=== PATIENT | female | born 1955 | race Hispanic/Latino ===

== ENCOUNTER → 2018-04-02 | Outpatient (CLI) | payer OTHER | END | disposition home or self-care (01) | LOC: RAH 10:55 | PROVIDERS: ATTEND Family Medicine | DX: Z12.31 Encounter for screening mammogram for malignant neoplasm of breast (principal) | CPT/HCPCS: 77067 ==

== ENCOUNTER 2019-03-30 17:06 | Emergency (ER) | payer OTHER ==
[~2019-03-30 17:06] MED LIST: LEVO500T2 PO; METF-446 PO; METH4TAB3 PO
[2019-03-30 18:09] LABS: BASOPHILS % (AUTO) 0.6 % (0.0-5.0); EOSINOPHILS % (AUTO) 0.9 % (0.0-8.0); HEMATOCRIT 38.6 % (36-48); LYMPHOCYTES % (AUTO) 27.2 % (21.0-51.0); MEAN CORPUSCULAR HEMOGLOBIN 29.7 pg (27.0-33.0); MEAN CORPUSCULAR HGB CONC 34.5 g/dL (32.0-36.0); MONOCYTES % (AUTO) 8.2 % (3.0-13.0); NEUTROPHILS % (AUTO) 63.1 % (40.0-77.0); PLATELET COUNT (AUTO) 206 K/uL (130-400); RED BLOOD CELL COUNT(AUTO) 4.49 MIL/uL (4.00-5.50); RED CELL DISTRIBUTION WIDTH 13.7 % (11.0-15.5); WHITE BLOOD COUNT (AUTO) 7.4 K/uL (4.8-10.8)
[2019-03-30] MEDS ORDERED: SODIUM CHLORIDE 0.9% 1000ML 1,000 ML IV ONE (18:10)
[2019-03-30] MEDS ORDERED: ONDANSETRON HCL 4 MG/2 ML VIAL ONE (18:10)
[2019-03-30 18:16] LABS: APPEARANCE,URINE Clear (CLEAR); BILIRUBIN,URINE Negative (NEGATIVE); COLOR,URINE Yellow (YELLOW); GLUCOSE, URINE (UA) Negative (NEGATIVE); KETONES,URINE Negative (NEGATIVE); LEUKOCYTE ESTERASE ,URINE Negative (NEGATIVE); NITRATE,URINE Negative (NEGATIVE); OCCULT BLOOD,URINE Trace (NEGATIVE); PROTEIN,URINE Negative (NEGATIVE)
[2019-03-30 18:27] LABS: BILIRUBIN,TOTAL 0.7 mg/dL (0.2-1.0); POTASSIUM 4.2 mmol/L (3.5-5.1); TOTAL PROTEIN, SERUM 7.8 g/dL (6.0-8.3)
[2019-03-30 18:30] LABS: BACTERIA,URINE None Seen /HPF (None Seen); MUCUS,URINE Few LPF (None Seen); WBC,URINE 0-1 /HPF (0-1)
[2019-03-30 18:34] LABS: INR 0.92 (0.85-1.15); PARTIAL THROMBOPLASTIN TIME 29.3 SEC (26.3-35.5); PROTHROMBIN TIME 9.7 SEC (9.6-11.6)
[2019-03-30 18:36] LABS: ALBUMIN 4.2 g/dL (3.5-5.0); CREATININE 0.5 mg/dL (0.5-1.5)
[2019-03-30] MEDS ORDERED: IOHEXOL-350 75 ML VIAL IV ONE (18:40)
== END 2019-03-30 19:56 | disposition home or self-care (01) ==
LOC: EDH 17:06
DX: K43.9 Ventral hernia without obstruction or gangrene (principal); E11.9 Type 2 diabetes mellitus without complications; Z87.891 Personal history of nicotine dependence
CPT/HCPCS: 36415; 74177; 80053; 81001; 83690; 85025; 85610; 85730; 96374; 99285; J2405; J7030; Q9967

== ENCOUNTER → 2019-04-04 | Outpatient (CLI) | payer OTHER | END | disposition home or self-care (01) | LOC: RAH 11:19 | PROVIDERS: ATTEND Family Medicine | DX: Z12.31 Encounter for screening mammogram for malignant neoplasm of breast (principal) | CPT/HCPCS: 77067 ==

== ENCOUNTER → 2019-04-26 | Outpatient (CLI) | payer OTHER | END | disposition home or self-care (01) | LOC: RAH 08:40 | PROVIDERS: ATTEND Family Medicine | DX: R92.8 Other abnormal and inconclusive findings on diagnostic imaging of breast (principal) | CPT/HCPCS: 76641; 77065 ==

== ENCOUNTER → 2019-08-01 | Outpatient (CLI) | payer OTHER ==
[2019-08-01 08:45] LABS: INR 0.91 (0.85-1.15); PARTIAL THROMBOPLASTIN TIME 28.9 SEC (26.3-35.5); PROTHROMBIN TIME 9.9 SEC (9.6-11.6)
--- NOTE | 2019-08-01 09:30 | NUR ---
US GUIDED BIOPSY RIGHT BREAST MASS PROCEDURE PERFORMED BY DR. FOSTER. PUNCTURE SITE RIGHT LATERAL BREAST. PATIENT TOLERATED PROCEDURE WELL. SPECIMEN X 5 COLLECTED. SPECIMEN SENT TO LAB. END OF PROCEDURE AT 0935. TISSUE MARKER PLACED TO SITE BIOPSY NEEDLE REMOVED AND DRESSING APPLIED. NO BLEEDING NOTED. PT GIVEN DISCHARGED INSTRUCTIONS, PT VERBALIZED UNDERSTANDING. PT DISCHARGED AMBULATORY, PT STABLE, AAO X3 WITH NO C/O PAIN.
== END ==
LOC: RAH 07:40
PROVIDERS: ATTEND Family Medicine
DX: N63.13 Unspecified lump in the right breast, lower outer quadrant (principal); C50.911 Malignant neoplasm of unspecified site of right female breast; Z79.01 Long term (current) use of anticoagulants
CPT/HCPCS: 19083; 36415; 85610; 85730; A4215 ×3

== ENCOUNTER → 2020-07-25 | Outpatient (CLI) | payer OTHER | END | disposition home or self-care (01) | LOC: RAH 14:41 | PROVIDERS: ATTEND Internal Medicine | DX: C50.511 Malignant neoplasm of lower-outer quadrant of right female breast (principal); R92.2 Inconclusive mammogram; R92.8 Other abnormal and inconclusive findings on diagnostic imaging of breast; Z85.3 Personal history of malignant neoplasm of breast | CPT/HCPCS: 77066 ==

== ENCOUNTER → 2022-08-01 | Outpatient (CLI) | payer OTHER, MEDICARE | END | disposition home or self-care (01) | LOC: RAH 10:17 | PROVIDERS: ATTEND Internal Medicine | DX: C50.511 Malignant neoplasm of lower-outer quadrant of right female breast (principal) | CPT/HCPCS: 77066 ==

== ENCOUNTER → 2024-08-03 | Outpatient (CLI) | payer OTHER, MEDICARE ==
--- NOTE | 2024-08-04 10:57 | HMCIMG ---
Exam Type: MAMMO DX BILATERAL Clinical Information: HX OF BREAST CA Comparison: August 03, 2023 Technique: Mammogram with CAD was performed with CC and MLO projections. CAD shows no worrisome regions. FINDINGS: The breasts are heterogeneously dense, which may obscure small masses. No dominant mass or suspicious microcalcification identified. There is no nipple retraction or skin thickening. Benign-appearing calcifications are seen. CAD shows no worrisome regions. IMPRESSION: 1. No mammographic signs of malignancy. 2. Routine follow-up recommended. CATEGORY 2: BENIGN FINDINGS Note: A negative x-ray should not delay biopsy if a dominant or clinically suspicious mass is present, since 8-10% of cancers are not identified by mammography. Dense breasts may obscure an underlying neoplasm.
== END | disposition home or self-care (01) ==
LOC: RAH 09:30
PROVIDERS: ATTEND Internal Medicine
DX: C50.511 Malignant neoplasm of lower-outer quadrant of right female breast (principal); R92.333 Mammographic heterogeneous density, bilateral breasts; R92.1 Mammographic calcification found on diagnostic imaging of breast
CPT/HCPCS: 77066